=== PATIENT | female | born 1985 | race Caucasian/White ===

== ENCOUNTER 2017-03-24 22:20 | Emergency (ER) | payer MEDICAID ==
[~2017-03-24] VITALS: Ht 165.1 cm; Wt 113.4 kg
[~2017-03-24 22:20] MED LIST: AC500T; ACHD5005 PO; ALPR1T PO; AZIT-21 PO; BUTA1TAB55 PO; Birth Control Pill; CODE-54 PO; CPR500T PO; CYCL10TA9 PO; DOXY100C2 PO; FAMO20TA5 PO; HCT25T PO; HYDR-3816 PO; IBP800T PO; LEVO500T69 PO; MAG SALT; METR500T PO; MTH.2T PO; NAPR-243 PO; NAPR550T PO; NITR-65 PO; OMEP-10 PO; ONDA4TAB11 PO; ONDA4TAB2 PO; PEDI1TAB11 PO; PNV1CAPS13 PO; PRM25T PO; PROP1TAB77 PO; TRAM150C3 PO; TRM50T PO; [UNRECOGNIZED DRUG - CODE] PO
[2017-03-24 23:04] VITALS: BP 129/92
--- OUTSIDE RECORDS SUMMARY | 2017-03-26 09:32 | XMS REPORT ---
Author Author NELSON KINGSLEY Organization [facility] Address [address] [place] [address] Care Team Providers Care Wealth Management Advisor Name Role Phone TEETEE NELSON Unavailable PROBLEMS Type Condition ICD9-CM Code WRA73-RH Code Onset Dates Condition Status SNOMED Code Problem Lumbago 724.2 Active 135570200 Problem Unspecified episodic mood disorder 296.90 Active 212587458 Assessment Right lower quadrant abdominal pain R10.31 Oct, Active 484321938 Problem General counseling for prescription of oral contraceptives V25.01 Active 478982737 Problem Anxiety state, unspecified 300.00 Active 391745658 ALLERGIES Unknown Allergies SOCIAL HISTORY No smoking Hx information available PLAN OF CARE VITAL SIGNS Weight 258 lbs 2015-11-03 Heart Rate 68 bpm 2015-11-03 Respiratory Rate 16 2015-11-03 Blood pressure systolic 116 mmHg 2015-11-03 Blood pressure diastolic 76 mmHg 2015-11-03 MEDICATIONS Unknown Medications RESULTS Name Result Date Reference Range Xray : KUB (IN HOUSE) 2015-11-03 PROCEDURES Procedure Date Ordered Related Diagnosis Body Site X-RAY EXAM OF ABDOMEN Nov 03, 2015 Office Visit, New Pt., Level 2 Nov 03, 2015 IMMUNIZATIONS No Known Immunizations
--- OUTSIDE RECORDS SUMMARY | 2017-03-26 09:32 | XMS REPORT | Continuity of Care Document ---
Author Author [facility] Address Unknown Phone Unavailable Allergies Active Description Code Type Severity Reaction Onset Reported/Identified Relationship to Patient Clinical Status Yes ampicillin [id number] Drug Allergy Unknown N/A 08/28/2009 Yes cephalexin [id number] Drug Allergy Unknown N/A 08/28/2009 Yes Penicillins [id number] Drug Allergy Unknown N/A 08/28/2009 Yes Keflex Drug Allergy N/A N/A 02/01/2011 Yes Penicillins Drug Allergy N/A N/A 02/01/2011 Medications There is no data. Problems Date Dx Coded Attending Type Code Diagnosis Diagnosed By 02/22/2009 Ot 590.80 02/22/2009 Ot 646.63 08/28/2009 Ot 782.3 08/28/2009 Ot V45.89 12/26/2009 Ot 599.0 12/26/2009 Ot 784.0 12/26/2009 Ot 959.01 12/26/2009 Ot 995.81 12/26/2009 Ot E000.8 12/26/2009 Ot E960.0 12/26/2009 Ot E967.3 09/08/2010 Ot 847.0 09/08/2010 Ot 959.09 09/08/2010 Ot E000.8 09/08/2010 Ot E960.0 02/01/2011 NELSON KINGSLEY APRN 625.0 DYSPAREUNIA 02/01/2011 NELSON KINGSLEY APRN 783.1 recent weight gain (___ lbs) [reported] 02/01/2011 NELSON KINGSLEY APRN V72.31 Pelvic Exam (Internal) 08/13/2011 Ot 846.0 08/13/2011 Ot 847.0 08/13/2011 Ot 847.1 08/13/2011 Ot 959.09 08/13/2011 Ot E000.8 08/13/2011 Ot E821.0 11/13/2011 Ot 640.03 THREATEN ABORT-ANTEPART 02/04/2012 Ot 784.0 HEADACHE 02/04/2012 Ot 787.03 VOMITING ALONE 04/22/2012 Ot 276.51 DEHYDRATION 04/22/2012 Ot 346.90 MIGRAINE UNSPECIFIED W/O INTRACT MGRN W/ 04/22/2012 Ot 789.02 ABDOMINAL PAIN, LEFT UPPER QUADRANT 04/22/2012 Ot 790.6 ABN BLOOD CHEMISTRY NEC 12/17/2012 SHARIF DE LA CRUZ, HEMA Birch Ot 276.52 HYPOVOLEMIA 12/17/2012 SHARIF DE LA CRUZ, HEMA Birch Ot 599.0 URIN TRACT INFECTION NOS 12/17/2012 HEMA OLGUIN MD Ot 787.01 NAUSEA WITH VOMITING 12/17/2012 SHARIF DE LA CRUZ, HEMA Birch Ot 789.09 ABDOMINAL PAIN, OTHER SPECIFIED SITE 01/22/2013 HEMA OLGUIN MD Ot 535.50 UNSP GASTRITIS GASTRODUODENITIS W/O ME 01/22/2013 HEMA OLGUIN MD Ot 789.06 ABDOMINAL PAIN, EPIGASTRIC 02/10/2014 NELSON KINGSLEY APRN 296.90 MOOD DISORDER 02/10/2014 NELSON KINGSLEY APRN 300.00 ANXIETY UNSPEC 02/10/2014 NELSON KINGSLEY APRN 724.2 BACK PAIN, LOWER 02/10/2014 NELSON KINGSLEY APRN V25.01 GENERAL COUNSELING ON PRESCRIPTION OF ORAL CONTRACEPTIVES 03/19/2014 Ot 625.0 03/19/2014 Ot V45.51 03/19/2014 Ot 625.0 03/19/2014 Ot V45.51 03/19/2014 ZORA WOODS Ot 462 ACUTE PHARYNGITIS 03/25/2014 ZORA WOODS Ot 462 05/15/2014 Ot 473.9 CHRONIC SINUSITIS NOS 05/15/2014 Ot 599.0 URIN TRACT INFECTION NOS 05/15/2014 Ot 784.0 HEADACHE 07/26/2014 BALBIR JOSUE APRN Ot 305.70 AMPHETAMINE ABUSE-UNSPEC 07/26/2014 BALBIR JOSUE APRN Ot 709.9 SKIN DISORDER NOS Procedures There is no data. Results There is no data. Encounters ACCT No. Visit Date/Time Discharge Status Pt. Type Provider Facility Loc./Unit Complaint [id number] 02/10/2014:08:00 02/10/2014 23:59:59 CLS Outpatient TEETEE NELSON MONTOYA [id number] 03/24/2017 22:22:00 03/25/2017 00:00:00 DIS Emergency ANGELY CARROLL MD [facility] ER SOB [id number] 07/26/2014 12:10:00 07/26/2014 13:30:00 DIS Emergency BALBIR JOSUE APRN [facility] ER PERIOD CONCERNS [id number] 03/19/2014 13:07:00 03/19/2014 15:01:00 DIS Emergency ZORA WOODS [facility] ER SORE THROAT [id number] 01/22/2013 00:20:00 01/22/2013 01:56:00 DIS Emergency HEMA OLGUIN MD [facility] ER UPPER ABD PAIN,18 WKS PREG [id number] 12/17/2012 22:40:00 12/17/2012 23:30:00 DIS Emergency HEMA OLGUIN MD [facility] ER ABD PAIN [id number] 05/15/2014 11:13:00 Document Registration [id number] 03/19/2014 13:06:00 Document Registration [id number] 04/22/2012 18:28:00 Document Registration [id number] 02/04/2012 14:17:00 Document Registration [id number] 11/12/2011 23:07:00 Document Registration [id number] 08/13/2011 14:06:00 Document Registration [id number] 02/08/2011 11:53:00 Document Registration [id number] 09/08/2010 17:48:00 Document Registration [id number] 12/26/2009 11:37:00 Document Registration [id number] 08/28/2009 05:47:00 Document Registration [id number] 02/22/2009 10:25:00 Document Registration
== END 2017-03-25 | disposition left against medical advice (07) ==
LOC: EDUNIT# 22:20 → ER 22:22
DX: J98.8 Other specified respiratory disorders (principal); R06.02 Shortness of breath
CPT/HCPCS: 99281

== ENCOUNTER 2019-04-23 14:26 | Outpatient (CLI) | payer MEDICAID ==
[~2019-04-23] VITALS: Ht 165.1 cm; Wt 168.0 kg
--- NOTE | 2019-04-23 14:35 | NUR ---
DEBORA DOMINGO presented to unit via from ED, accompanied by family, with c/o SOA;SWELLING;TROUBLE WALKING. DEBORA DOMINGO weighed, gowned, voided, and to bed. EFHM and TOCO applied, VS taken. DEBORA DOMINGO oriented to bed controls, call light, TV, heat, and A/C controls.
[2019-04-23 15:38] VITALS: BP 123/56
--- NOTE | 2019-04-23 15:38 | NUR ---
efm removed assisted into w/c taken to ER for further evaluation of non ob related c/o per dr villegas request.
[2019-04-23] MEDS ORDERED: METR-145 PO (18:15)
[2019-04-23] MEDS ORDERED: NITR100C PO (18:15)
== END 2019-04-23 15:38 | disposition home or self-care (01) ==
LOC: WSo 14:26 → LDRP 14:29 → WSo 15:38
PROVIDERS: ATTEND Obstetrics & Gynecology
DX: Z34.90 Encounter for supervision of normal pregnancy, unspecified, unspecified trimester (principal); Z3A.00 Weeks of gestation of pregnancy not specified
CPT/HCPCS: 99212

== ENCOUNTER 2019-04-23 15:45 | Emergency (ER) | payer MEDICAID ==
[~2019-04-23] VITALS: Ht 165 cm; Wt 168.0 kg
--- NOTE | 2019-04-23 16:10 | NUR ---
pt self ambulatory to ED room, vs assessed and stable, pt states she has been SOB for quite some time, states when she coughs she has thin mucus stuff on her sleeve
--- NOTE | 2019-04-23 16:46 | NUR ---
pt self ambulatory to restroom
[2019-04-23 16:57] LABS: BASOPHILS % (AUTO) 0 % (0-10); EOSINOPHILS # (AUTO) 0.1 10^3/uL (0.0-0.3); EOSINOPHILS % (AUTO) 2 % (0-10); HEMATOCRIT 34 % (35-52); HEMOGLOBIN 11.8 G/DL (11.5-16.0); LYMPHOCYTES % (AUTO) 30 % (12-44); MEAN CORPUSCULAR HEMOGLOBIN 28 PG (25-34); MEAN CORPUSCULAR HGB CONC 35 G/DL (32-36); MEAN CORPUSCULAR VOLUME 82 FL (80-99); MEAN PLATELET VOLUME 10.1 FL (7.4-10.4); MONOCYTES # (AUTO) 0.4 X 10^3 (0.0-1.0); MONOCYTES % (AUTO) 6 % (0-12); NEUTROPHILS # (AUTO) 4.1 X 10^3 (1.8-7.8); NEUTROPHILS % (AUTO) 61 % (42-75); PLATELET COUNT 199 10^3/uL (130-400); RED CELL DISTRIBUTION WIDTH 14.1 % (10.0-14.5); WHITE BLOOD COUNT 6.7 10^3/uL (4.3-11.0)
[2019-04-23 17:01] LABS: BILIRUBIN,URINE NEGATIVE (NEGATIVE); CLARITY,URINE CLOUDY; COLOR,URINE YELLOW; GLUCOSE, URINE (UA) NEGATIVE (NEGATIVE); KETONES,URINE NEGATIVE (NEGATIVE); LEUKOCYTE ESTERASE ,URINE TRACE (NEGATIVE); NITRITE,URINE POSITIVE (NEGATIVE); PROTEIN,URINE NEGATIVE (NEGATIVE)
[2019-04-23 17:09] LABS: ALANINE AMINOTRANSFERASE 19 U/L (0-55); ALBUMIN 2.9 GM/DL (3.2-4.5); ALKALINE PHOSPHATASE 73 U/L (40-136); BILIRUBIN,TOTAL 0.2 MG/DL (0.1-1.0); BUN/CREATININE RATIO 14; CALCIUM 8.6 MG/DL (8.5-10.1); CARBON DIOXIDE 21 MMOL/L (21-32); CHLORIDE 108 MMOL/L (98-107); CREATININE SERUM 0.64 MG/DL (0.60-1.30); GFR ESTIMATED > 60; GLUCOSE 97 MG/DL (70-105); MAGNESIUM 1.6 MG/DL (1.6-2.4); POTASSIUM 4.3 MMOL/L (3.6-5.0); SODIUM 137 MMOL/L (135-145); TOTAL PROTEIN 5.5 GM/DL (6.4-8.2)
[2019-04-23 17:18] LABS: BACTERIA,URINE LARGE /HPF; RBC,URINE RARE /HPF; WBC,URINE >100 /HPF
--- NOTE | 2019-04-23 17:23 | Diagnostic Imaging Report ---
INDICATION: Shortness of breath. Comparison made with prior examination from 04/22/2012. PA and lateral views were obtained. FINDINGS: The heart size, mediastinal configuration, and pulmonary vascularity are within normal limits. There is no pleural effusion, pneumothorax, or pneumonia. The osseous structures are unremarkable. IMPRESSION: No acute cardiopulmonary abnormality. Dictated by: Dictated on workstation # [id number]
[2019-04-23] MEDS ORDERED: metroNIDAZOLE 500 MG (FLAGYL) TAB PO STA (18:01)
--- NOTE | 2019-04-23 18:01 | ED General ---
General Chief Complaint: Respiratory Problems Stated Complaint: SOB Nursing Triage Note: PT SENT DOWN FROM OB ET WAS CLEARED BY DR COTE ET WANTS HER SEEN IN THE ER. PT COMPLAINS OF SOA WITH A COUGH. ALSO STATES SHE HAS NOT VOIDED IN 1.5 DAYS. DENIES FEVER AND IS 35 WEEKS GESTATION. Nursing Sepsis Screen: No Definite Risk Source of Information: Patient Exam Limitations: No Limitations History of Present Illness Date Seen by Provider: Apr 23, 2019 Time Seen by Provider: 16:35 Initial Comments Here with report of shortness of breath and right groin pain. Seen in OB triage and then sent down here due to shortness of breath. She's approximately 35 weeks gestation. She follows with Dr. Cote. Reports that she's had some urine appears cloudy. Denies fever. Does have a cough. She has not had her flu vaccination this year. Timing/Duration: 1-2 Days Severity: Moderate Associated Systoms: No Chest Pain; Cough; No Fever/Chills, No Nausea/Vomiting; Shortness of Air; No Weakness Allergies and Home Medications Allergies Coded Allergies: Ampicillin (Unverified Allergy, 08/28/09) Cephalexin (Unverified Allergy, 08/28/09) Penicillins (Unverified Allergy, 08/28/09) Home Medications Metronidazole 500 Mg Tab, 1 EACH PO BID Prescribed by: BALBIR JOSUE on 07/26/14 5157 Patient Home Medication List Home Medication List Reviewed: Yes Review of Systems Review of Systems Constitutional: see HPI; No chills, No fever EENTM: no symptoms reported Respiratory: cough, short of breath Cardiovascular: no symptoms reported Gastrointestinal: No abdominal pain, No nausea, No vomiting Genitourinary: dysuria, frequency : Yes Musculoskeletal: no symptoms reported Skin: no symptoms reported Psychiatric/Neurological: No Symptoms Reported Past Nqjmnzp-Derqbk-Tcogac Hx Past Med/Social Hx: Reviewed Nursing Past Med/Soc Hx Patient Social History Alcohol Use: Denies Use Recreational Drug Use: No Smoking Status: Never a Smoker Type Used: Cigarettes Recent Foreign Travel: No Contact w/Someone Who Travel: No Recent Infectious Disease Expo: No Recent Hopitalizations: No Immunizations Up To Date Date of Influenza Vaccine: Nov 28, 2011 Seasonal Allergies Seasonal Allergies: No Past Medical History Surgeries: Yes (D&C x2, ) Adenoidectomy, Tonsillectomy Respiratory: No Cardiac: No Neurological: No Reproductive Disorders: No Sexually Transmitted Disease: No Genitourinary: No UTI-Chronic Gastrointestinal: No Musculoskeletal: No Endocrine: Yes (morbid obesity) Cancer: No Psychosocial: Yes Anxiety, Bipolar, Depression Integumentary: No Blood Disorders: No Family Medical History Reviewed Nursing Family Hx No Pertinent Family Hx, Diabetes Physical Exam Vital Signs Vital Signs - First Documented 04/23/19 15:54 Temp 37.0 Pulse 89 Resp 16 B/P (MAP) 123/81 (95) Pulse Ox 98 O2 Delivery Room Air Capillary Refill : Less Than 3 Seconds Height, Weight, BMI Height: 5'5.00" Weight: 250lbs. oz. 113.641091hm; 61.00 BMI Method:Stated General Appearance: No Apparent Distress, WD/WN HEENT: PERRL/EOMI, Pharynx Normal Neck: Non Tender, Supple Respiratory: Lungs Clear, Normal Breath Sounds Cardiovascular: Regular Rate, Rhythm, No Murmur Gastrointestinal: Non Tender, Soft Genital/Rectal: Other (external vaginal and groin evaluation does not reveal any significant lymphadenopathy currently. Patient was able to identify the typical area and this was free of significant lymph nodes or lesions.) Extremity: Normal Range of Motion, Non Tender, No Calf Tenderness, No Pedal Edema Neurologic/Psychiatric: Alert, Oriented x3 Skin: Normal Color, Warm/Dry Progress/Results/Core Measures Suspected Sepsis Recent Fever Within 48 Hours: No Infection Criteria Present: Suspected New Infection New/Unexplained Altered Menta: No Sepsis Screen: No Definite Risk SIRS Temperature: Pulse: 89 Respiratory Rate: 16 Laboratory Tests 04/23/19 16:15: White Blood Count 6.7 Blood Pressure 123 /81 Mean: 95 Laboratory Tests 04/23/19 16:15: Creatinine 0.64, Platelet Count 199, Total Bilirubin 0.2 Results/Orders Lab Results Laboratory Tests Test 04/23/19 16:15 04/23/19 16:50 Range/Units White Blood Count 6.7 4.3-11.0 10^3/uL Red Blood Count 4.17 L 4.35-5.85 10^6/uL Hemoglobin 11.8 11.5-16.0 G/DL Hematocrit 34 L 35-52 % Mean Corpuscular Volume 82 80-99 FL Mean Corpuscular Hemoglobin 28 25-34 PG Mean Corpuscular Hemoglobin Concent 35 32-36 G/DL Red Cell Distribution Width 14.1 10.0-14.5 % Platelet Count 199 130-400 10^3/uL Mean Platelet Volume 10.1 7.4-10.4 FL Neutrophils (%) (Auto) 61 42-75 % Lymphocytes (%) (Auto) 30 12-44 % Monocytes (%) (Auto) 6 0-12 % Eosinophils (%) (Auto) 2 0-10 % Basophils (%) (Auto) 0 0-10 % Neutrophils # (Auto) 4.1 1.8-7.8 X 10^3 Lymphocytes # (Auto) 2.0 1.0-4.0 X 10^3 Monocytes # (Auto) 0.4 0.0-1.0 X 10^3 Eosinophils # (Auto) 0.1 0.0-0.3 10^3/uL Basophils # (Auto) 0.0 0.0-0.1 10^3/uL Sodium Level 137 135-145 MMOL/L Potassium Level 4.3 3.6-5.0 MMOL/L Chloride Level 108 H 98-107 MMOL/L Carbon Dioxide Level 21 21-32 MMOL/L Anion Gap 8 5-14 MMOL/L Blood Urea Nitrogen 9 7-18 MG/DL Creatinine 0.64 0.60-1.30 MG/DL Estimat Glomerular Filtration Rate > 60 BUN/Creatinine Ratio 14 Glucose Level 97 70-105 MG/DL Calcium Level 8.6 8.5-10.1 MG/DL Corrected Calcium 9.5 8.5-10.1 MG/DL Magnesium Level 1.6 1.6-2.4 MG/DL Total Bilirubin 0.2 0.1-1.0 MG/DL Aspartate Amino Transf (AST/SGOT) 16 5-34 U/L Alanine Aminotransferase (ALT/SGPT) 19 0-55 U/L Alkaline Phosphatase 73 40-136 U/L C-Reactive Protein High Sensitivity 0.87 H 0.00-0.50 MG/DL Total Protein 5.5 L 6.4-8.2 GM/DL Albumin 2.9 L 3.2-4.5 GM/DL Urine Color YELLOW Urine Clarity CLOUDY Urine pH 6.0 5-9 Urine Specific Mercer 1.025 H 1.016-1.022 Urine Protein NEGATIVE NEGATIVE Urine Glucose (UA) NEGATIVE NEGATIVE Urine Ketones NEGATIVE NEGATIVE Urine Nitrite POSITIVE H NEGATIVE Urine Bilirubin NEGATIVE NEGATIVE Urine Urobilinogen 0.2 < = 1.0 MG/DL Urine Leukocyte Esterase TRACE H NEGATIVE Urine RBC (Auto) NEGATIVE NEGATIVE Urine RBC RARE /HPF Urine WBC >100 H /HPF Urine Squamous Epithelial Cells 2-5 /HPF Urine Crystals NONE /LPF Urine Bacteria LARGE H /HPF Urine Casts NONE /LPF Urine Mucus SMALL H /LPF Urine Culture Indicated YES Micro Results Microbiology 04/23/19 Influenza Types A,B Antigen (SISSY) - Final, Complete 04/23/19 Wet Prep - Final, Complete My Orders Orders - IHSAN HAGER MD Cbc With Automated Diff (04/23/19 16:44) Comprehensive Metabolic Panel (04/23/19 16:44) Hs C Reactive Protein (04/23/19 16:44) Magnesium (04/23/19 16:44) Ua Culture If Indicated (04/23/19 16:44) Influenza A And B Antigens (04/23/19 16:44) Chest Pa/Lat (2 View) (04/23/19 16:44) Wet Prep (04/23/19 16:44) Ekg Tracing (04/23/19 16:56) Urine Culture (04/23/19 16:50) Metronidazole Tablet (Flagyl Tablet) (04/23/19 18:01) Nitrofurantoin Capsule,Macro (Macrobid C (04/23/19 18:15) Flagyl 500 Mg Iv (1x Dose) (04/23/19 18:15) Vital Signs/I&O 04/23/19 15:54 Temp 37.0 Pulse 89 Resp 16 B/P (MAP) 123/81 (95) Pulse Ox 98 O2 Delivery Room Air Capillary Refill : Less Than 3 Seconds Blood Pressure Mean: 95 Progress Note : Progress Note Seen and evaluated. IV, labs, UA and chest x-ray ordered. Influenza screen ordered. 03/06/04: I have discussed the case with Dr. Cote twice now. Patient has urinary tract infection noted but is allergic to penicillins. I also had her to self administered vaginal swab and that revealed clue cells. We will initiate Flagyl 500 mg IV now and continue that 7 more days. He has recommended Macrobid twice a day as well. First dose now. Discharged home with return precautions. Patient verbalize understanding instructions and agreement with plan. ECG Initial ECG Impression Date: Apr 23, 2019 Initial ECG Impression Time: 16:09 Initial ECG Rate: 87 Initial ECG Rhythm: Normal Sinus Initial ECG Impression: Normal Initial ECG Comparisson: No Previous ECG Available Comment Sinus rhythm with normal axis. No evidence of ST elevation [place]. No previous available for comparison. Interpreted by me. Diagnostic Imaging Diagonstic Imaging: Xray Plain Films/CT/US/NM/MRI: chest Comments [facility] [place] [place] NAME: DEBORA DOMINGO [facility] REC#: [id number] PT STATUS: REG ER : 1985 PHYSICIAN: IHSAN HAGER MD ADMIT DATE: 04/23/19/ER Signed Date of Exam:04/23/19 CHEST PA/LAT (2 VIEW) INDICATION: Shortness of breath. Comparison made with prior examination from 04/22/2012. PA and lateral views were obtained. FINDINGS: The heart size, mediastinal configuration, and pulmonary vascularity are within normal limits. There is no pleural effusion, pneumothorax, or pneumonia. The osseous structures are unremarkable. IMPRESSION: No acute cardiopulmonary abnormality. Dictated by: Dictated on workstation # [id number] Dict: 04/23/19 1721 Trans: 04/23/19 1735 [id number] Interpreted by: KRISTAL EDUARDO MD Electronically signed by: KRISTAL EDUARDO MD 04/23/19 1735 Departure Impression Primary Impression: Urinary tract infection Qualified Codes: N30.00 - Acute cystitis without hematuria Additional Impression: BV (bacterial vaginosis) Disposition: 01 HOME, SELF-CARE Condition: Improved Departure-Patient Inst. Decision time for Depature: 18:11 Referrals: NO,LOCAL PHYSICIAN (PCP) Primary Care Physician KRISTAL COTE DO Patient Instructions: Urinary Tract Infection, Adult (DC), Bacterial Vaginosis Add. Discharge Instructions: All discharge instructions reviewed with patient and/or family. Voiced understanding. Take medications as directed. Call Dr. Cote office in the morning for appointment first available. Return for worse pain, fever, vomiting, weakness, breathing problems or other concerns as needed. Scripts Nitrofurantoin Macrocrystal (Nitrofurantoin) 100 Mg Capsule 100 MG PO BID, #14 CAP 0 Refills Prov: IHSAN HAGER MD 04/23/19 Metronidazole (Metronidazole) 500 Mg Tablet 500 MG PO BID, #13 TAB 0 Refills Prov: IHSAN HAGER MD 04/23/19 Copy Copies To 1: KRISTAL COTE TIMOTHY D MD Apr 23, 2019 18:01
[2019-04-23] MEDS ORDERED: NITROFURANTOIN 100 MG (MACROBID) CAPSULE PO ONE (18:15)
[2019-04-23] MEDS ORDERED: metroNIDAZOLE 500MG/100ML IVPB 100 ML IV ONE (18:15)
[2019-04-23] MEDS ORDERED: NITR100C PO (18:15)
[2019-04-23] MEDS ORDERED: METR-145 PO (18:15)
[2019-04-23 18:42] VITALS: BP 123/81
== END 2019-04-23 18:44 | disposition home or self-care (01) ==
LOC: EDUNIT# 15:45 → ER 15:47
DX: O23.43 Unspecified infection of urinary tract in pregnancy, third trimester (principal); O23.593 Infection of other part of genital tract in pregnancy, third trimester; O99.213 Obesity complicating pregnancy, third trimester; E66.01 Morbid (severe) obesity due to excess calories; Z68.44 Body mass index [BMI] 60.0-69.9, adult; Z88.1 Allergy status to other antibiotic agents; Z88.0 Allergy status to penicillin; Z3A.35 35 weeks gestation of pregnancy
CPT/HCPCS: 36415; 71046; 80053; 81000; 83735; 85025; 86141; 87077; 87088; 87186; 87210; 87804; 93005; 96365

== ENCOUNTER 2019-11-23 10:34 | Emergency (ER) | payer MEDICAID ==
[~2019-11-23] VITALS: Ht 165.1 cm; Wt 150.0 kg
[~2019-11-23 10:34] MED LIST changes: +ACET-93 PO; +AZIT250T PO; +BREA1EAC MC; +DCS100C PO; +IBUP-1780 PO; +METR-145 PO; +NITR100C PO; +OXC5T PO; +Promethazine/Codeine PO; +RT-ALBUINH INH
--- NOTE | 2019-11-23 10:54 | ED General ---
General Chief Complaint: General Problems/Pain Stated Complaint: R HAND PAIN / UNABLE TO WALK Source of Information: Patient Exam Limitations: No Limitations History of Present Illness Date Seen by Provider: Nov 23, 2019 Time Seen by Provider: 10:50 Initial Comments To ER with a multitude of complaints. She is ambulatory into the registration area where she complains that she is unable to walk. She states this is because of severe pelvic pain onset yesterday. Hasn't had a period in several months since getting the Implanon placed in her left arm. No fevers or chills or trauma. Also complains of pain to the proximal phalanx of the right pinky finger. This began suddenly yesterday and now swollen and slightly erythematous. She also complains of right ear pain. Timing/Duration: 1-2 Days Severity: Moderate Associated Systoms: Denies Symptoms Allergies and Home Medications Allergies Coded Allergies: Penicillins (Unverified Allergy, Unknown, 04/23/19) ampicillin (Unverified Allergy, Unknown, 04/23/19) cephalexin (Unverified Allergy, Unknown, 04/23/19) Home Medications Acetaminophen 500 Mg Tablet, 1,000 MG PO Q6HR Prescribed by: KRISTAL SOGN on 06/03/19841 Albuterol Sulfate 1 Puff Puff, 2 PUFF INH Q4H 1 PUFF = 90 MCG Prescribed by: KRISTAL SONG on 06/02/19 0209 Azithromycin 250 Mg Tablet, 250 MG PO UD TAKE 2 TABLETS TODAY, THEN TAKE 1 TABLET DAILY FOR 4 MORE DAYS Prescribed by: KRISTAL SONG on 06/03/19841 Docusate Sodium 100 Mg Capsule, 100 MG PO BID Prescribed by: KRISTAL SONG on 06/03/19841 Ibuprofen 800 Mg Tablet, 800 MG PO Q8HR Prescribed by: KRISTAL SONG on 06/03/19841 Ondansetron 4 Mg Tab.rapdis, 4 MG PO Q8H Prescribed by: KRISTAL SONG on 06/02/19 021 Oxycodone Hcl 5 Mg Tab, 5 MG PO Q6H Prescribed by: KRISTAL SONG on 06/03/19841 [Promethazine/Codeine] 5 ML SYRP, 5 ML PO Q6H Prescribed by: KRISTAL SONG on 4/6/20 0842 Patient Home Medication List Home Medication List Reviewed: Yes Review of Systems Review of Systems Constitutional: see HPI EENTM: see HPI Respiratory: no symptoms reported Cardiovascular: no symptoms reported Genitourinary: no symptoms reported Musculoskeletal: no symptoms reported Skin: no symptoms reported Psychiatric/Neurological: No Symptoms Reported Hematologic/Lymphatic: No Symptoms Reported Immunological/Allergic: no symptoms reported Past Gfajbeh-Kotvbq-Qoelot Hx Patient Social History Type Used: Cigarettes Recent Foreign Travel: No Contact w/Someone Who Travel: No Recent Hopitalizations: No Immunizations Up To Date Date of Influenza Vaccine: Nov 28, 2011 Seasonal Allergies Seasonal Allergies: No Past Medical History Surgeries: Yes (D&C x2, , cholecytectomy) Adenoidectomy, Section, Tonsillectomy Respiratory: No Cardiac: No Neurological: No Reproductive Disorders: No Sexually Transmitted Disease: No Genitourinary: Yes UTI-Chronic Gastrointestinal: Yes Gastroesophageal Reflux Musculoskeletal: No Endocrine: Yes (morbid obesity) Cancer: No Psychosocial: Yes Anxiety, Bipolar, Schizophrenia, Depression Integumentary: No Blood Disorders: No Family Medical History Patient reports no known family medical history. No Pertinent Family Hx, Diabetes Physical Exam Vital Signs Vital Signs - First Documented 11/23/19 10:37 Temp 37.3 Pulse 98 Resp 20 B/P (MAP) 110/68 (82) Pulse Ox 98 O2 Delivery Room Air Capillary Refill : Less Than 3 Seconds Height, Weight, BMI Height: 5'5.00" Weight: 250lbs. oz. 113.824021rq; 55.00 BMI Method:Stated General Appearance: No Apparent Distress, WD/WN, Obese Eyes: Bilateral Eye Normal Inspection, Bilateral Eye PERRL, Bilateral Eye EOMI Neck: Full Range of Motion, Normal Inspection Respiratory: No Accessory Muscle Use, No Respiratory Distress Gastrointestinal: Normal Bowel Sounds, Soft, Tenderness Extremity: Normal Capillary Refill, Normal Inspection Neurologic/Psychiatric: Alert, Oriented x3, Other (hyperactive, tearful, sobbing, agitated) Skin: Normal Color, Warm/Dry Progress/Results/Core Measures Suspected Sepsis SIRS Temperature: Pulse: 98 Respiratory Rate: 20 Laboratory Tests 11/23/19 10:54: White Blood Count 8.2 Blood Pressure 110 /68 Mean: 82 Laboratory Tests 11/23/19 10:54: Creatinine 0.62, Platelet Count 229, Total Bilirubin 0.6 Results/Orders Lab Results Laboratory Tests Test 11/23/19 10:54 11/23/19 11:09 Range/Units White Blood Count 8.2 4.3-11.0 10^3/uL Red Blood Count 4.50 3.80-5.11 10^6/uL Hemoglobin 12.9 11.5-16.0 g/dL Hematocrit 38 35-52 % Mean Corpuscular Volume 85 80-99 fL Mean Corpuscular Hemoglobin 29 25-34 pg Mean Corpuscular Hemoglobin Concent 34 32-36 g/dL Red Cell Distribution Width 13.1 10.0-14.5 % Platelet Count 229 130-400 10^3/uL Mean Platelet Volume 9.3 9.0-12.2 fL Immature Granulocyte % (Auto) 0 % Neutrophils (%) (Auto) 69 42-75 % Lymphocytes (%) (Auto) 22 12-44 % Monocytes (%) (Auto) 6 0-12 % Eosinophils (%) (Auto) 2 0-10 % Basophils (%) (Auto) 0 0-10 % Neutrophils # (Auto) 5.6 1.8-7.8 10^3/uL Lymphocytes # (Auto) 1.8 1.0-4.0 10^3/uL Monocytes # (Auto) 0.5 0.0-1.0 10^3/uL Eosinophils # (Auto) 0.1 0.0-0.3 10^3/uL Basophils # (Auto) 0.0 0.0-0.1 10^3/uL Immature Granulocyte # (Auto) 0.0 0.0-0.1 10^3/uL Sodium Level 138 135-145 MMOL/L Potassium Level 4.3 3.6-5.0 MMOL/L Chloride Level 108 H 98-107 MMOL/L Carbon Dioxide Level 20 L 21-32 MMOL/L Anion Gap 10 5-14 MMOL/L Blood Urea Nitrogen 7 7-18 MG/DL Creatinine 0.62 0.60-1.30 MG/DL Estimat Glomerular Filtration Rate > 60 BUN/Creatinine Ratio 11 Glucose Level 115 H 70-105 MG/DL Calcium Level 8.8 8.5-10.1 MG/DL Corrected Calcium 9.0 8.5-10.1 MG/DL Total Bilirubin 0.6 0.1-1.0 MG/DL Aspartate Amino Transf (AST/SGOT) 18 5-34 U/L Alanine Aminotransferase (ALT/SGPT) 36 0-55 U/L Alkaline Phosphatase 49 40-136 U/L Total Protein 7.2 6.4-8.2 GM/DL Albumin 3.8 3.2-4.5 GM/DL Serum Test, Qualitative NEGATIVE NEGATIVE Urine Color YELLOW Urine Clarity CLEAR Urine pH 5.5 5-9 Urine Specific [place] 1.025 H 1.016-1.022 Urine Protein NEGATIVE NEGATIVE Urine Glucose (UA) NEGATIVE NEGATIVE Urine Ketones NEGATIVE NEGATIVE Urine Nitrite NEGATIVE NEGATIVE Urine Bilirubin NEGATIVE NEGATIVE Urine Urobilinogen 1.0 < = 1.0 MG/DL Urine Leukocyte Esterase NEGATIVE NEGATIVE Urine RBC (Auto) 2+ H NEGATIVE Urine RBC NONE /HPF Urine WBC 0-2 /HPF Urine Squamous Epithelial Cells 25-50 H /HPF Urine Crystals NONE /LPF Urine Bacteria FEW H /HPF Urine Casts NONE /LPF Urine Mucus NEGATIVE /LPF Urine Culture Indicated NO Urine Opiates Screen NEGATIVE NEGATIVE Urine Oxycodone Screen NEGATIVE NEGATIVE Urine Methadone Screen NEGATIVE NEGATIVE Urine Propoxyphene Screen NEGATIVE NEGATIVE Urine Barbiturates Screen NEGATIVE NEGATIVE Ur Tricyclic Antidepressants Screen NEGATIVE NEGATIVE Urine Phencyclidine Screen NEGATIVE NEGATIVE Urine Amphetamines Screen POSITIVE H NEGATIVE Urine Methamphetamines Screen POSITIVE H NEGATIVE Urine Benzodiazepines Screen NEGATIVE NEGATIVE Urine Cocaine Screen NEGATIVE NEGATIVE Urine Cannabinoids Screen POSITIVE H NEGATIVE My Orders Orders - BALBIR JOSUE [employer] Cbc With Automated Diff (11/23/19 10:49) Comprehensive Metabolic Panel (11/23/19 10:49) Hcg,Qualitative Serum (11/23/19 10:49) Ed Iv/Invasive Line Start (11/23/19 10:49) Drug Screen Stat (Urine) (11/23/19 10:49) Lorazepam Injection (Ativan Injection) (11/23/19 11:00) Ketorolac Injection (Toradol Injection) (11/23/19 11:00) Ua Culture If Indicated (11/23/19 11:35) Ct Abd/Pelvis Wo(Kidney Stone) (11/23/19 12:02) Medications Given in ED Current Medications Medications Dose Ordered Sig/Dave Route Start Time Stop Time Status Last Admin Dose Admin Ketorolac Tromethamine 15 mg ONCE ONCE IVP 11/23/19 11:00 11/23/19 11:01 DC 11/23/19 11:00 15 MG Lorazepam 1 mg ONCE PRN IVP 11/23/19 11:00 11/23/19 11:00 1 MG Vital Signs/I&O 11/23/19 10:37 Temp 37.3 Pulse 98 Resp 20 B/P (MAP) 110/68 (82) Pulse Ox 98 O2 Delivery Room Air Capillary Refill : Less Than 3 Seconds Departure Communication (Admissions) NAME: [facility] REC#: [id number] PT STATUS: REG ER : 1985 PHYSICIAN: BALBIR JOSUE APRN ADMIT DATE: 11/23/19/ER Draft Date of Exam:11/23/19 CT ABD/PELVIS WO(KIDNEY STONE) PROCEDURE: CT urinary tract, rule out kidney stone. TECHNIQUE: Multiple contiguous axial images were obtained through the abdomen and pelvis without the use of intravenous contrast. Auto Exposure Controls were utilized during the CT exam to meet ALARA standards for radiation dose reduction. INDICATION: Flank pain. COMPARISON: None. DISCUSSION: The lung bases are well-aerated. The dome of the liver is clipped. Normal heart size. No pleural or pericardial fluid. Fatty hepatomegaly is noted. The spleen is enlarged measuring 14.1 cm. The stomach, pancreas, and adrenal glands are unremarkable. There is no renal stone or hydronephrosis identified. Uterus and urinary bladder are unremarkable. The appendix is normal. No obstruction, pneumatosis, or pneumoperitoneum. No ascites or pathologically enlarged lymph nodes identified. No acute osseous abnormality identified. IMPRESSION: 1. Fatty hepatomegaly with additional splenomegaly. 2. No renal stone or hydronephrosis. Dictated on workstation # [id number] Dict: 11/23/19 1227 Trans: 11/23/19 1234 [facility] [id number] Interpreted by: YOSHI LÓPEZ MD Electronically signed by: Impression Primary Impression: Methamphetamine use Additional Impressions: Pelvic pain Finger swelling Disposition: 01 HOME, SELF-CARE Condition: Stable Departure-Patient Inst. Decision time for Depature: 11:53 Referrals: NO,LOCAL PHYSICIAN (PCP/Family) Primary Care Physician Patient Instructions: NO INSTRUCTIONS GIVEN Add. Discharge Instructions: 1. Take the antibiotics for the finger swelling. This may represent infection or just an injury/contusion to the finger. Follow-up with your doctor next week. Return to ER for any worsening. All discharge instructions reviewed with patient and/or family. Voiced understanding. Scripts Acetaminophen/Diphenhydramine (Percogesic 325-12.5 mg Tablet) 1 Each Tablet 1 EACH PO Q4H PRN for PAIN-MODERATE (5-7), #14 TAB Prov: BALBIR JOSUE APRN 11/23/19 Doxycycline Hyclate (Doxycycline Hyclate) 100 Mg Tablet 100 MG PO BID, #20 TAB 0 Refills Prov: BALBIR JOSUE APRN 11/23/19 BALBIR JOSUE APRN Nov 23, 2019 10:54
[2019-11-23] MEDS ORDERED: KETOROLAC 30 MG/ML VIAL IVP ONE (11:00)
[2019-11-23] MEDS ORDERED: LORazepam INJ 2 MG/ML (ATIVAN) VIAL IVP PRN (11:00)
--- NOTE | 2019-11-23 11:04 | NUR ---
MEDS GIVEN WARM BLANKETS SIDE RAILS UP.
--- NOTE | 2019-11-23 11:06 | NUR ---
UP TO [facility] TO OBTAIN UA.
[2019-11-23 11:19] LABS: BASOPHILS % (AUTO) 0 % (0-10); EOSINOPHILS # (AUTO) 0.1 10^3/uL (0.0-0.3); EOSINOPHILS % (AUTO) 2 % (0-10); HEMATOCRIT 38 % (35-52); HEMOGLOBIN 12.9 g/dL (11.5-16.0); LYMPHOCYTES # (AUTO) 1.8 10^3/uL (1.0-4.0); LYMPHOCYTES % (AUTO) 22 % (12-44); MEAN CORPUSCULAR HEMOGLOBIN 29 pg (25-34); MEAN CORPUSCULAR HGB CONC 34 g/dL (32-36); MEAN CORPUSCULAR VOLUME 85 fL (80-99); MEAN PLATELET VOLUME 9.3 fL (9.0-12.2); MONOCYTES # (AUTO) 0.5 10^3/uL (0.0-1.0); MONOCYTES % (AUTO) 6 % (0-12); NEUTROPHILS # (AUTO) 5.6 10^3/uL (1.8-7.8); NEUTROPHILS % (AUTO) 69 % (42-75); PLATELET COUNT 229 10^3/uL (130-400); WHITE BLOOD COUNT 8.2 10^3/uL (4.3-11.0)
[2019-11-23 11:28] LABS: ALBUMIN 3.8 GM/DL (3.2-4.5); CHLORIDE 108 MMOL/L (98-107); POTASSIUM 4.3 MMOL/L (3.6-5.0); SODIUM 138 MMOL/L (135-145)
[2019-11-23 11:30] LABS: CALCIUM 8.8 MG/DL (8.5-10.1)
[2019-11-23 11:31] LABS: GLUCOSE 115 MG/DL (70-105); TOTAL PROTEIN 7.2 GM/DL (6.4-8.2)
[2019-11-23 11:32] LABS: CARBON DIOXIDE 20 MMOL/L (21-32)
[2019-11-23 11:33] LABS: BILIRUBIN,TOTAL 0.6 MG/DL (0.1-1.0)
[2019-11-23 11:33] LABS: AMPHETAMINE SCREEN, URINE POSITIVE (NEGATIVE); BARBITURATE SCREEN URINE NEGATIVE (NEGATIVE); BENZODIAZEPINES SCREEN URINE NEGATIVE (NEGATIVE); CANNABINOID SCREEN, URINE POSITIVE (NEGATIVE); COCAINE SCREEN URINE NEGATIVE (NEGATIVE); METHADONE STAT NEGATIVE (NEGATIVE); METHAMPHETAMINE SCREEN URINE S POSITIVE (NEGATIVE); OPIATE SCREEN URINE NEGATIVE (NEGATIVE); OXYCODONE STAT NEGATIVE (NEGATIVE); PROPOXYPHENE STAT NEGATIVE (NEGATIVE); TRICYCLIC ANTIDEPRESSANTS SCRE NEGATIVE (NEGATIVE)
[2019-11-23 11:34] LABS: ALKALINE PHOSPHATASE 49 U/L (40-136); CREATININE SERUM 0.62 MG/DL (0.60-1.30); GFR ESTIMATED > 60
[2019-11-23 11:36] LABS: BUN/CREATININE RATIO 11
[2019-11-23 11:37] LABS: ALANINE AMINOTRANSFERASE 36 U/L (0-55)
--- NOTE | 2019-11-23 11:44 | NUR ---
TO ROOM PATIENT APPEARS TO BE RESSTING BETTR STATES PAIN IS BETTER
[2019-11-23 11:45] LABS: BILIRUBIN,URINE NEGATIVE (NEGATIVE); CLARITY,URINE CLEAR; COLOR,URINE YELLOW; GLUCOSE, URINE (UA) NEGATIVE (NEGATIVE); KETONES,URINE NEGATIVE (NEGATIVE); LEUKOCYTE ESTERASE ,URINE NEGATIVE (NEGATIVE); NITRITE,URINE NEGATIVE (NEGATIVE); PH,URINE 5.5 (5-9); PROTEIN,URINE NEGATIVE (NEGATIVE)
[2019-11-23 11:59] LABS: BACTERIA,URINE FEW /HPF; SQUAMOUS EPITHELIAL CELL,UR 25-50 /HPF; WBC,URINE 0-2 /HPF
--- NOTE | 2019-11-23 12:11 | NUR ---
OK TO CALL AND TALK WITH HER SISTER. UPDATE WILL BE GIVEN.
--- NOTE | 2019-11-23 12:35 | Diagnostic Imaging Report ---
PROCEDURE: CT urinary tract, rule out kidney stone. TECHNIQUE: Multiple contiguous axial images were obtained through the abdomen and pelvis without the use of intravenous contrast. Auto Exposure Controls were utilized during the CT exam to meet ALARA standards for radiation dose reduction. INDICATION: Flank pain. COMPARISON: None. DISCUSSION: The lung bases are well-aerated. The dome of the liver is clipped. Normal heart size. No pleural or pericardial fluid. Fatty hepatomegaly is noted. The spleen is enlarged measuring 14.1 cm. The stomach, pancreas, and adrenal glands are unremarkable. There is no renal stone or hydronephrosis identified. Uterus and urinary bladder are unremarkable. The appendix is normal. No obstruction, pneumatosis, or pneumoperitoneum. No ascites or pathologically enlarged lymph nodes identified. No acute osseous abnormality identified. IMPRESSION: 1. Fatty hepatomegaly with additional splenomegaly. 2. No renal stone or hydronephrosis. Dictated by: Dictated on workstation # [id number]
[2019-11-23] MEDS ORDERED: DOXY100T2 PO (12:37)
[2019-11-23] MEDS ORDERED: ACET-1672 PO (12:38)
--- NOTE | 2019-11-23 12:45 | NUR ---
DISCHARGE UPDATE GIVEN TO EDWARD BY Nelson JOSUE APRN.
[2019-11-23 12:46] VITALS: BP 109/76
== END 2019-11-23 12:45 | disposition home or self-care (01) ==
LOC: EDUNIT# 10:34 → ER 10:35
DX: R10.2 Pelvic and perineal pain (principal); F15.90 Other stimulant use, unspecified, uncomplicated; E66.01 Morbid (severe) obesity due to excess calories; M79.89 Other specified soft tissue disorders; Z68.43 Body mass index [BMI] 50.0-59.9, adult; Z88.0 Allergy status to penicillin; Z88.1 Allergy status to other antibiotic agents
CPT/HCPCS: 36415; 74176; 80053; 80306; 81000; 84703; 85025